=== PATIENT | female | born 1945 | race Caucasian/White ===

== ENCOUNTER 2019-01-07 08:37 | Outpatient (REF) | payer MEDICARE, SELFPAY ==
[2019-01-07 19:20] LABS: Anion Gap 9.8 mmol/L (3-11); BUN 26 mg/dL (7-18); CO2 25.2 mmol/L (21.0-32.0); CREATININE 0.68 mg/dL (0.55-1.02); Calcium 9.2 mg/dL (8.5-10.1); Calculated LDL 177 mg/dL; Chloride 103 mmol/L (98-107); Cholesterol 249 mg/dL (50-200); Glucose 99 mg/dL (70-100); HDL Cholesterol 52 mg/dL (40-60); Potassium 4.4 mmol/L (3.5-5.1); Sodium 138 mmol/L (136-145); Triglyceride 104 mg/dL (30-150)
== END 2019-01-07 08:57 ==
LOC: NCHCN 08:37
PROVIDERS: PCP Internal Medicine; Visit Provider Internal Medicine
DX: I10 Essential (primary) hypertension (principal)
CPT/HCPCS: 80048; 80061; 83721

== ENCOUNTER 2019-04-16 13:05 | Outpatient (REF) | payer MEDICARE, SELFPAY ==
[2019-04-16 19:38] LABS: Anion Gap 10.2 mmol/L (3-11); CO2 23.8 mmol/L (21.0-32.0); Chloride 104 mmol/L (98-107); Potassium 4.3 mmol/L (3.5-5.1); Sodium 138 mmol/L (136-145)
== END 2019-04-16 13:25 ==
LOC: LBN 13:05
PROVIDERS: PCP Internal Medicine; Visit Provider Family Medicine
DX: E87.1 Hypo-osmolality and hyponatremia (principal)
CPT/HCPCS: 80051

== ENCOUNTER 2019-05-31 17:51 | Outpatient (REF) | payer MEDICARE, SELFPAY ==
[2019-05-31 19:25] LABS: Anion Gap 8.2 mmol/L (3-11); BUN 25 mg/dL (7-18); CO2 29.8 mmol/L (21.0-32.0); CREATININE 0.85 mg/dL (0.55-1.02); Calcium 9.9 mg/dL (8.5-10.1); Chloride 102 mmol/L (98-107); Glucose 108 mg/dL (74-106); Potassium 3.7 mmol/L (3.5-5.1); Sodium 140 mmol/L (136-145)
== END 2019-05-31 18:11 ==
LOC: NCHCN 17:51
PROVIDERS: PCP Internal Medicine; Visit Provider Internal Medicine
DX: E87.1 Hypo-osmolality and hyponatremia (principal)
CPT/HCPCS: 80048

== ENCOUNTER 2019-10-31 11:51 | Outpatient (REF) | payer MEDICARE, SELFPAY ==
[2019-10-31 20:12] LABS: Anion Gap 8.6 mmol/L (3-11); BUN 23 mg/dL (7-18); CO2 26.4 mmol/L (21.0-32.0); CREATININE 0.99 mg/dL (0.55-1.02); Calcium 9.9 mg/dL (8.5-10.1); Chloride 102 mmol/L (98-107); Estimated GFR 55.14 (mL/min/1.73m2); Glucose 108 mg/dL (74-106); Potassium 4.2 mmol/L (3.5-5.1); Sodium 137 mmol/L (136-145)
== END 2019-10-31 12:11 ==
LOC: NCHCN 11:51
PROVIDERS: PCP Internal Medicine; Visit Provider Internal Medicine
DX: I10 Essential (primary) hypertension (principal); E87.1 Hypo-osmolality and hyponatremia; M17.9 Osteoarthritis of knee, unspecified; H81.10 Benign paroxysmal vertigo, unspecified ear
CPT/HCPCS: 80048

== ENCOUNTER 2020-10-29 20:32 | Outpatient (REF) | payer MEDICARE, SELFPAY ==
[2020-10-29 15:43] LABS: HCT 40.3 % (36.0-46.0); HGB 13.3 g/dL (11.2-15.7); MCH 32.6 pg (27.0-33.0); MCV 98.8 fL (80-95); MPV 10.2 fL (8.0-11.0); Platelet Count 300 10^3/uL (130-400); RBC 4.08 10^6/uL (3.93-5.22); RDW 13.2 % (11.7-14.6); RDW-SD 48.1 fL; WBC 6.73 10^3/uL (4.4-10.8)
[2020-10-29 15:50] LABS: Anion Gap 8.1 mmol/L (3-11); BUN 31 mg/dL (7-18); CO2 28.9 mmol/L (21.0-32.0); CREATININE 0.9 mg/dL (0.55-1.02); Calcium 9.8 mg/dL (8.5-10.1); Chloride 103 mmol/L (98-107); Glucose 95 mg/dL (74-106); Magnesium 2.3 mg/dL (1.8-2.4); Potassium 3.9 mmol/L (3.5-5.1); Sodium 140 mmol/L (136-145)
== END 2020-10-29 20:33 | disposition home or self-care (01) ==
LOC: NCHCN 20:32
PROVIDERS: PCP Internal Medicine; Visit Provider Internal Medicine
DX: I10 Essential (primary) hypertension (principal); M17.11 Unilateral primary osteoarthritis, right knee; L57.8 Other skin changes due to chronic exposure to nonionizing radiation
CPT/HCPCS: 80048; 85027; 83735

== ENCOUNTER 2022-09-12 10:56 | Outpatient (CLI) | payer MEDICARE, SELFPAY ==
--- NOTE | 2022-09-12 10:15 | DI.RAD_ITS ---
Exam(s) XR KNEE RT 2V AP,LAT EXAM: XR KNEE RT 2V AP,LAT CLINICAL HISTORY: RIGHT KNEE PAIN. TECHNIQUE: 2D digital imaging was performed. COMPARISON: No exams were available for comparison FINDINGS: Two views: No evidence of fracture. Small amount of increased joint fluid. Moderate degenerative changes in the medial compartment. Mil nan degenerative changes in lateral and patellofemoral compartments IMPRESSION: Degenerative changes as described above DATA REPOSITORY: RADIATION DOSE DELIVERED:
--- NOTE | 2022-09-12 10:15 | DI.RAD_ITS ---
Exam(s) XR STANDING ALIGNMENT EXAM: XR STANDING ALIGNMENT CLINICAL HISTORY: RIGHT KNEE PAIN. TECHNIQUE: 2D digital imaging was performed. COMPARISON: No exams were available for comparison FINDINGS: 3 views Hips appear unremarkable. There are moderate degenerative changes in the medial compartments of both knees. No prominent joint space narrowing but there are marginal osteophytes off the medial compart ment of both knees. Lateral compartments of both knees exhibit normal height. Ankles unremarkable. Talar domes unremarkable. No osseous lesions. Bone density is age-appropriate. IMPRESSION: Moderate degenerative changes in the medial compartments of both knees. DATA REPOSITORY: RADIATION DOSE DELIVERED:
== END 2022-09-12 10:57 | disposition home or self-care (01) ==
LOC: DIORS 10:57
PROVIDERS: PCP Internal Medicine; Referring Provider Internal Medicine; Visit Provider Student in an Organized Health Care Education/Training Program
DX: M17.11 Unilateral primary osteoarthritis, right knee (principal)
CPT/HCPCS: 99203; 73560; 77073

== ENCOUNTER 2022-10-13 14:00 | Outpatient (REF) | payer MEDICARE, SELFPAY ==
[2022-10-13 19:57] LABS: Anion Gap 7.8 mmol/L (3-11); BUN 21 mg/dL (7-18); CO2 28.2 mmol/L (21.0-32.0); CREATININE 0.9 mg/dL (0.55-1.02); Calcium 9.7 mg/dL (8.5-10.1); Calculated LDL 154 mg/dL (<100); Chloride 103 mmol/L (98-107); Cholesterol 237 mg/dL (<200); Estimated GFR 66.67 (mL/min/1.73m2); Glucose 128 mg/dL (74-106); HDL Cholesterol 66 mg/dL (40-60); Potassium 3.9 mmol/L (3.5-5.1); Sodium 139 mmol/L (136-145); Triglyceride 88 mg/dL (<150)
== END 2022-10-13 14:01 | disposition home or self-care (01) ==
LOC: NCHCN 14:00
PROVIDERS: PCP Internal Medicine; Visit Provider Internal Medicine
DX: I10 Essential (primary) hypertension (principal); D15.1 Benign neoplasm of heart
CPT/HCPCS: 80048; 80061

== ENCOUNTER 2022-10-20 02:45 | Outpatient (CLI) | payer MEDICARE, SELFPAY ==
[2022-10-20 15:39] LABS: HCT 36.6 % (36.0-46.0); HGB 12.2 g/dL (11.2-15.7); MCH 32.8 pg (27.0-33.0); MCHC 33.3 % (32.0-36.0); MCV 98 fL (80-95); MPV 9.2 fL (8.0-11.0); Platelet Count 287 10^3/uL (130-400); RBC 3.72 10^6/uL (3.93-5.22); RDW 12.8 % (11.7-14.6); RDW-SD 46.2 fL; WBC 5.48 10^3/uL (4.4-10.8)
[2022-10-20 16:29] LABS: Anion Gap 9.5 mmol/L (3-11); BUN 22 mg/dL (7-18); CO2 27.5 mmol/L (21.0-32.0); CREATININE 0.8 mg/dL (0.55-1.02); Calcium 9.8 mg/dL (8.5-10.1); Chloride 103 mmol/L (98-107); Estimated GFR 76.79 (mL/min/1.73m2); Glucose 108 mg/dL (74-106); Potassium 3.9 mmol/L (3.5-5.1); Sodium 140 mmol/L (136-145)
== END 2022-10-20 02:46 | disposition home or self-care (01) ==
LOC: LBO 02:45
PROVIDERS: PCP Internal Medicine; Visit Provider Student in an Organized Health Care Education/Training Program
DX: M17.11 Unilateral primary osteoarthritis, right knee; Z01.818 Encounter for other preprocedural examination; Z01.812 Encounter for preprocedural laboratory examination
CPT/HCPCS: 36415; 80048; 85027

== ENCOUNTER 2022-10-26 08:47 | Day surgery (SDC) | payer MEDICARE, SELFPAY ==
[2022-10-26] VITALS (11 sets, daily range): BP systolic 127–188; BP diastolic 62–103; PULSE 63–79; RESP 14–18; TEMP 36.4–37.1; O2SAT 97–100; BMI 21.0
--- NOTE | 2022-10-26 09:10 | ANES.PREOP_ITS ---
General Info Date of Service Date Performed: 10/26/22 Height: 5 ft 2 in Weight: 52.163 kg Body Mass Index (BMI): 21.0 Surgical Procedure: Operation Date: 10/26/22 11:40 Proposed Procedure Side Surgeon p Knee Total Arthroplasty w/OrthAlign, Cementless CR Right Jostin Sahni MD Meds Allergies and Home Medications Allergies Allergy/AdvReac Type Severity Reaction Status Date / Time ciprofloxacin Allergy Intermediate Hives Verified 10/26/22 08:54 amoxicillin Allergy Verified 10/26/22 08:54 piperacillin [From Zosyn] Allergy Verified 10/26/22 08:54 sulfamethoxazole Allergy Verified 10/26/22 08:54 [From Bactrim] tazobactam [From Zosyn] Allergy Verified 10/26/22 08:54 trimethoprim [From Bactrim] Allergy Verified 10/26/22 08:54 vancomycin Allergy Verified 10/26/22 08:54 Home Medication Medication Instructions Recorded albuterol sulfate 2.5 mg/3 mL 2.5 mg inhalation Q6H 09/12/22 (0.083 %) solution for nebulization albuterol sulfate 90 mcg/actuation 2 puff inhalation Q6H PRN 09/12/22 aerosol inhaler (Ventolin HFA) lisinopril 40 mg tablet 40 mg PO DAILY 09/12/22 multivitamin with minerals 1 tab PO DAILY 09/12/22 torsemide 10 mg tablet 10 mg PO DAILY 09/12/22 flaxseed 1,000 mg capsule 1,200 mg PO DAILY 10/25/22 acetaminophen 500 mg tablet 1,000 mg PO TID #90 tabs 10/26/22 aspirin 81 mg tablet,delayed 81 mg PO BID #60 tabs 10/26/22 release celecoxib 200 mg capsule 200 mg PO BID #60 caps 10/26/22 dexamethasone 4 mg tablet 4 mg PO DAILY #2 tabs 10/26/22 gabapentin 300 mg capsule 300 mg PO QHS #14 caps 10/26/22 oxycodone 5 mg tablet 5 mg PO Q4H PRN pain #20 tabs 10/26/22 pantoprazole 40 mg tablet,delayed 40 mg PO DAILY #30 tabs 10/26/22 release Current Visit Medications: Current Medications Generic Name Dose Route Start Last Admin Trade Name Freq PRN Reason Stop Dose Admin Acetaminophen 1,000 mg 10/26/22 06:00 Acetaminophen 500 Mg Tab PO 10/26/22 16:00 PREOP RUSTY Acetaminophen 1,000 mg 10/26/22 07:42 Acetaminophen 500 Mg Tab PO 11/25/22 07:41 TID PRN PRN Analgesia Celecoxib 400 mg 10/26/22 06:00 Celecoxib 200 Mg Cap PO 10/26/22 16:00 PREOP RUSTY Docusate Sodium 100 mg 10/26/22 07:42 Docusate Sodium 100 Mg Cap PO 11/25/22 07:41 BID PRN PRN Constipation Gabapentin 300 mg 10/26/22 06:00 Gabapentin 300 Mg Cap PO 10/26/22 16:00 PREOP RUSTY Tranexamic Acid 1,000 mg/ 60 mls @ 360 mls/hr 10/26/22 06:00 Sodium Chloride IVPB 10/26/22 16:00 PREOP RUSTY Ondansetron HCl 4 mg 10/26/22 07:42 Ondansetron 4 Mg/2 Ml Vial IVP 11/25/22 07:41 Q6H PRN PRN Nausea Oxycodone HCl 0 mg 10/26/22 07:42 Oxycodone 5 Mg Tab PO 11/25/22 07:41 Q3H PRN PRN Pain Polyethylene Glycol 17 gm 10/26/22 07:42 Polyethylene Glycol 3350 17 Gm Packet PO 11/25/22 07:41 BID PRN PRN Constipation PFSH Active Problems Active Problems: Problem Status Onset Code Degenerative joint disease of right knee M17.11 Medical History Medical History Essential hypertension PCO (posterior capsular opacification), left Surgical History Surgical History Hx of foot surgery Mid-tarsal [id number] plates and screws, and wire Hx of knee surgery Per pt. states she had a lateral resection Status post arthroscopy of right knee Tobacco Smoking/Tobacco Use Status: Former Tobacco Use Alcohol Alcohol Intake: current Alcohol intake frequency: a few times a month Alcohol type: hard liquor Vital Signs and Lab Results Vital Signs Most Recent Vital Signs in EMR: Temp Pulse Resp BP Pulse Ox 36.5 C 63 16 171/81 H 98 10/26/22 08:56 10/26/22 08:56 10/26/22 08:56 10/26/22 08:56 10/26/22 08:56 Lab Results Blood Type / Crossmatch: No Data to Display Complete Blood Count: White Blood Count 5.48 10^3/uL (4.4-10.8) 10/20/22 15:30 Red Blood Count 3.72 10^6/uL (3.93-5.22) L 10/20/22 15:30 Hemoglobin 12.2 g/dL (11.2-15.7) 10/20/22 15:30 Hematocrit 36.6 % (36.0-46.0) 10/20/22 15:30 Platelet Count 287 10^3/uL (130-400) 10/20/22 15:30 Complete Metabolic Panel: Sodium 140 mmol/L (136-145) 10/20/22 15:30 Potassium 3.9 mmol/L (3.5-5.1) 10/20/22 15:30 Chloride 103 mmol/L (98-107) 10/20/22 15:30 Carbon Dioxide 27.5 mmol/L (21.0-32.0) 10/20/22 15:30 BUN 22 mg/dL (7-18) H 10/20/22 15:30 Creatinine 0.8 mg/dL (0.55-1.02) 10/20/22 15:30 Est GFR (CKD-EPI 2020) 76.79 (mL/min/1.73m2) 10/20/22 15:30 Calcium 9.8 mg/dL (8.5-10.1) 10/20/22 15:30 Glucose 108 mg/dL (74-106) H 10/20/22 15:30 Liver Function Panel: No Data to Display Coagulation Panel: No Data to Display Cardiac Panel: No Data to Display Arterial Blood Gas: No Data to Display Venous Blood Gas: No Data to Display Pancreas Panel: No Data to Display Thyroid Panel: No Data to Display Infectious Disease: No Data to Display Blood Cultures: No Data to Display Toxicology Panel: No Data to Display Anesthesia Assessment and Plan Anesthesia History Personal History: No History of Anesthesia Complications Family History: No Family History of Anesthesia Complications Exercise Tolerance Exercise Tolerance: Metabolic Equivalents>4 Cardiac & Pulmonary Exam Cardiac Exam: Normal S1/S2 Heart Sounds Pulmonary Exam: Clear Bilateral Breath Sounds Implantable Cardiac Device Does patient have a Pacemaker or an ICD?: No Airway Exam Known Difficult Airway: No Mallampati Class: 2 Mouth Opening: Normal (> 3cm) Thyromental Distance: Greater than 3 cm Neck Range of Motion: Full ROM Neck Circumference: Normal Teeth Condition: Normal Dentition, Removable Dentures/Plates Upper and Removable Dentures/Plates Lower ASA Classification ASA Score: ASA 2 Emergency Case?: No NPO Status NPO Status: NPO Clears >2 hours, Solids >8 hours Anesthesia Plan Resuscitation Status: Full Code Anesthesia Technique: Spinal Anesthesia Airway Planned: Natural Airway Pain Management: Surgeon and patient request nerve block Monitors Used: Standard Monitors Preoperative Comments:: 77 yo female for TKA. Sig PMHx: HTN (lisinopril, torsemide), asthma ( with coughs and colds, albuterol), former smoker, occ EtOH. Cardiac MRI 11/01, due to ECHO at [facility] which showed atrial mass: LVEF 71%, normal fxn. mild TR, mild MR, no atrial mass. Previous Anes: - [facility], easy mask, AirQ 3.5 - woke up confused and very sore throat.
[2022-10-26] MEDS: Acetaminophen 500 MG TAB 1000 MG PO (09:41)
[2022-10-26] MEDS: Gabapentin 300 MG CAP PO (09:41)
[2022-10-26] MEDS: Celecoxib 200 MG CAP 400 MG PO (09:41)
[2022-10-26] MEDS: Lactated Ringers 1,000 ML 80 ML IV (09:42)
--- NOTE | 2022-10-26 11:37 | W.ANESNERVE ---
Nerve Block Single Injection Procedure Date and Time Date Performed: 10/26/22 Procedure Start: 11:30 Location Where Procedure Performed Procedure Location: Day Surgery Unit Reason Performed: Postoperative Analgesia Requesting Provider: Jostin Sahni Timeout Performed Timeout Performed: Yes Monitoring Used ECG, Blood Pressure and SpO2 Sterility Sterility: Hand Hygiene, Surgical Cap, Surgical Mask, Sterile Gloves and Chlorhexidine Sedation Given During Procedure Sedation Given (Indicate Dose Given): No Sedation given Patient Mental Status Patient Mental Status: Awake Nerve Block 1st Nerve Block: Laterality: Right Block Type: Adductor Canal Ultrasound Image Saved?: Yes Needle / Catheter Used: 120mm SonoPlex II Local Anesthetic Bolus (Indicate Dose Given): Lidocaine used for local infiltration of skin and Bupivacaine 0.25% Dose:: 12 mL Additives (Indicate Dose Given): None Ultrasound: Sterile probe cover and gel used Nerve Stimulator: Primary Nerve Stimulator Technique and No twitch or parasthesia noted < 0.5 mA Paresthesia: None Procedure Tolerated: No Complications Procedure Outcome: Successful Performed By: Nain Sterling
[2022-10-26] MEDS: ceFAZolin 2 GM/50 ML BAG IVPB (11:48)
--- NOTE | 2022-10-26 14:29 | W.ANESPOSTOP ---
Postoperative Evaluation Date, Time and Location Date Performed: 10/26/22 Time Performed: 14:29 Patient Location: PACU Vital Signs Most Recent Imported Vital Signs: Most Recent Vital Signs Temp Pulse Resp BP Pulse Ox 37.1 C 74 15 149/76 H 100 10/26/22 13:55 10/26/22 14:25 10/26/22 14:25 10/26/22 14:25 10/26/22 14:25 Pain Score Most Recent Pain Score: Most Recent Pain Score Pain Level 0 10/26/22 14:25 Assessment Mental Status: Awake (Alert & Oriented to Patient Baseline) Airway and Respiratory Function: Patent airway with normal (patient baseline) respiratory exam Cardiovascular Function: Hemodynamically Stable Hydration Status: Adequately Hydrated Nausea & Vomiting: No Nausea or Vomiting Pain: Pain is tolerable per patient Peripheral Nerve Block: Patient did not receive a nerve block
--- NOTE | 2022-10-26 15:29 | W.PM.DSUDISC ---
Date of service: 10/26/22 Time of Service: 15:29 Discharge Plan Disposition Patient Disposition: Home Condition: Good Discharge Details Reason For Visit: R TKR Attending Provider: Jostin Sahni Primary Care Provider: Francisco Andrew Home Meds and New Rx's Prescriptions: New celecoxib 200 mg capsule 200 mg PO BID Qty: 60 0RF aspirin 81 mg tablet,delayed release (DR/EC) 81 mg PO BID Qty: 60 0RF acetaminophen 500 mg tablet 1,000 mg PO TID Qty: 90 3RF pantoprazole 40 mg tablet,delayed release (DR/EC) 40 mg PO DAILY Qty: 30 0RF dexamethasone 4 mg tablet 4 mg PO DAILY Qty: 2 0RF gabapentin 300 mg capsule 300 mg PO QHS Qty: 14 0RF oxycodone 5 mg tablet 5 mg PO Q4H MDD 6 tabs PRN (Reason: pain) Qty: 20 0RF Continued torsemide 10 mg tablet 10 mg PO DAILY lisinopril 40 mg tablet 40 mg PO DAILY albuterol sulfate 2.5 mg /3 mL (0.083 %) solution for nebulization 2.5 mg inhalation Q6H albuterol sulfate [Ventolin HFA] 90 mcg/actuation HFA aerosol inhaler 2 puff inhalation Q6H PRN multivitamin with minerals Tablet 1 tab PO DAILY flaxseed 1,000 mg Capsule 1,200 mg PO DAILY Discontinued ibuprofen 200 mg capsule 200 mg PO Q6H PRN acetaminophen 325 mg capsule 325 mg PO ONCE PRN Discharge Instructions Additional Instructions: Total Knee Discharge Instructions Activity: The most important activity is to walk and to work on gentle motion (both flexion and extension). You should try to take short walks a few times a day. It is important that when resting you work on keeping the knee straight. Avoid putting a pillow behind the knee as this will encourage flexion. Work on range of motion exercises as provided by Physical Therapy. - Start outpatient physical therapy within 2 weeks. November 09, 2022 @ 11:00 am - You should wear the JOANN hose on both legs for 2 weeks. You may remove these at night. You may also use any compression sock in place of the JOANN hose. - Utilize [employer] to review exercises, see videos on exercises and obtain basic information pertaining to your surgery and your recovery. Dressing: Remove the Panchito wrap by 2 days after your surgery and put on the JOANN stocking given to you from the hospital. Keep the surgical dressing (underneath the PANCHITO wrap) in place for at least one week. After the first week it may be removed and replaced with light gauze and tape or nothing. The wound and dressing may get wet after 3 days but avoid soaking the dressing or otherwise it will need to be changed. Many people prefer covering the dressing with cling wrap (saran wrap) to minimize it from getting soaked. If it gets wet, just pat dry. If it starts to peel off then it will need to be changed. Medications: - You should take Tylenol and anti-inflammatory Celebrex as your primary pain control medications. If the Celebrex is too expensive or not covered, please call the office for another alternative (Advil/Ibuprofen or Naproxen/Aleve) - You have been prescribed a stronger pain medication Oxycodone for breakthrough pain, take as needed as prescribed. - You have also been prescribed a stomach acid reduction agent Pantoprozole to help reduce stomach acid and reflux. - You have been prescribed Gabapentin to take at night for restlessness and nerve pain. - You will be taking Aspirin 81mg twice a day for DVT prevention unless instructed otherwise. - You have also been prescribed Decadron to take to control post-operative nausea and pain. You will start this tomorrow. - If you have constipation you should take Colace or Miralax (both [id number]). It takes most people 3-4 days to have a bowel movement. Follow-up: 2 weeks November 10, 2022 @ 11:15 am If you have any acute concerns or questions, please do not hesitate to contact the office at [phone]. You may contact Dr. Sahni with any questions after hours through the hospital at [phone] or on his cell phone at [phone]. Stand Alone Forms: Anesthesia Discharge Inst., Nerve Block Instructions, Waleska Farooq (DSU) Equipment/Supplies: Walker Activity:: Activity as Tolerated Shower/Bathe:: 72 hours Diet:: As Tolerated Discharge Orders Discharge Orders: Discharge Order (Routine); Ordered 10/26/22 Ordered By: Jostin Sahni DS: Diagnosis Discharge Diagnosis (1) Degenerative joint disease of right knee: Status: Acute
--- NOTE | 2022-10-26 16:03 | PT.INIE ---
PT Notes Visit Reasons: R TKR Physical Therapy Day Surgery Initial Evaluation Date: 10/26/2022 Referring Doctor: ANTOINE Choi PT Orders: PT CONSULT: S/P Ortho Surgery Precautions: WBAT on right LE with AD. Patient Profile/Admitting Diagnosis: Julieta is a 77-year-old female with degenerative degenerative joint disease of the right knee and is status post right total knee arthroplasty on postoperative day 0. PMHX: Surgical History?(Updated 09/12/22 @ 17:50 by Janeth Wilkerson) Status post arthroscopy of right knee Social History/Home Situation: Lives in a private home with 3 steps to enter with rails on B sides. Independent with all ADLs prior to surgery but had been having increasing difficulty managing mobility ADLs due to pain and pre-existing balance issue. Equipment Owned/DME: [facility] Subjective: Reports a mild ache in the back of R knee that did not limit abilty to move. Objective: General Observation: Supine in bed. CARMEN wraps to right LE. Cryocuff to right knee. TEDS to left leg. Mental Status: Alert and oriented x4 Pain: 2-3/10 in the right upper vaginal area ROM: Right Lower Extremity: Hip flexion WFL. Hip abduction WFL. Knee flexion 0 to 100 degrees. Knee extension 100 degrees to 0. Ankle dorsiflexion WFL. Ankle plantarflexion WFL. Left Lower Extremity: Hip flexion WFL. Hip abduction WFL. Knee flexion WFL. Ankle dorsiflexion WFL. Ankle plantarflexion WFL. Strength: Right Lower Extremity: Hip flexors 5/5. Hip abductors 5/5. Knee flexors 5/5. Knee extensors 5/5. Ankle dorsiflexors 5/5. Ankle plantarflexors 5/5. Left Lower Extremity:Hip flexors 4/5. Hip abductors 4/5. Knee flexors 3-/5. Knee extensors 4-/5. Ankle dorsiflexors 5/5. Ankle plantarflexors 5/5. Sensation: Intact as to pain and light pressure in bilateral lower extremities Bed Mobility/Transfers: Supine to sit standby assist Sit to stand standby assist Stand to sit standby assist Bed to chair standby assist Gait: Tolerated level surface ambulation of 150 feet using step-through gait pattern with standby assist. Denies headache, chest pain, and lightheadedness throughout session. Stairs: Ascended and descended 6 x 4-inch steps and 4 x 6-inch steps while holding onto bilateral rails with step to gait pattern. Stand by assist provided. Balance: Static Sitting: Normal Dynamic Sitting: Normal Static Standing: Fair Dynamic Standing: Fair Special Tests: Mobility Limitations Standardized Measure [facility] AM-PAC 6 clicks Basic Mobility Inpatient Short Form: Raw Score: 24 CMS Score: 0% deficit Informed Consent/Education: Patient instructed in purpose of PT consult. Packet containing TKA exercise protocol has been given to patient. Education and training on initial set of exercises that can be done at home have been completed with patient. THERA EX: Good patient with safe and correct performance of HEP to maintain joint flexibility and optimize functional mobility outcomes: Access Code: [email or web address] URL: [email or web address] Date: 10/26/2022 Prepared by: Brenda Marks Exercises - Supine Quad Set - 1 x daily - 7 x weekly - 1 sets - 10 reps - 5 hold - Supine Heel Slides - 1 x daily - 7 x weekly - 1 sets - 10 reps - 5 hold - Supine Ankle Pumps - 1 x daily - 7 x weekly - 1 sets - 10 reps - 5 hold - Small Range Straight Leg Raise - 1 x daily - 7 x weekly - 1 sets - 10 reps - 5 hold - Seated March - 1 x daily - 7 x weekly - 1 sets - 10 reps - 5 hold Assessment: Mai requires the use of a front wheel walker to maximize independence and reduce fall risk. Patient presents with clinical signs and symptoms consistent with current/admitting diagnoses that have resulted to mobility limitations, gait instability, generalized weakness, and impairment of motor control as demonstrated by the following impairment level findings: 1. Decreased strength to R knee major muscle groups 2. Impaired standing balance 3. Limitation of joint range of motion in R knee Impairments are contributing to the following functional limitations: 1. Inability to safely ambulate without assistive device 2. Increase completion time for mobility ADL performance 3. Increased fall risk Patient is assessed as a [id number] moderate complexity based on the following: History: 77-year-old female with impairment level findings, functional limitations, and past medical history as indicated above Examination: Demonstrable impairment in strength, balance, and mobility level with underlying impairments and functional limitations as documented above Presentation: Evolving Decision Makin moderate complexity Goals: N/A. PT evaluation and 1-2 treatment sessions only for functional mobility training using recommended AD and for HEP instruction. Plan of Care/Treatment Plan: N/A. PT evaluation and 1-2 treatment session only for functional mobility training using recommended AD and for HEP instruction. DISCHARGE RECOMMENDATIONS: Home when medically cleared by orthopedic surgeon. Recommend outpatient PT services maximize functional mobility outcomes and facilitate return to independent community ambulation without an assistive device. TREATMENT CODE/TIME: 31427 x 20 minutes, [id number] x 16 minutes beginning at 16:06 PM. Thank you for the opportunity to participate in the care of this patient. Brenda Marks PT, DPT, CLT [facility] [place], [place]
--- NOTE | 2022-10-26 16:46 | W.PM.OP ---
Date of service: 10/26/22 Time of Service: 13:30 Operative Note Operative Note DATE OF PROCEDURE: 10/26/22 PRE-OP DIAGNOSIS: Right Knee Osteoarthritis POST-OP DIAGNOSIS: same PROCEDURE: Right Total Knee Replacement with Intraoperative Navigation SURGEON: Jostin Sahni LABELING MACHINE OPERATOR: August Estrella ANESTHESIA TYPE: Spinal Refer to Anesthesia Record PATHOLOGY: none sent TOURNIQUET TIME: 0 COMPLICATIONS: None Patient was transported to: PACU Patient's condition: stable Implants: 1. Depuy Attune Cementless Cruciate Retaining Femoral Component, Size 6 2. Depuy Attune Cementless Rotating Platform Tibial Component, Size 5 3. Depuy Attune 6x6 CR/RP Poly 4. Depuy Attune Patellar Component, Size 35 Indications: I have seen Julieta in clinic for symptoms of RIGHT knee arthritis, confirmed with radiographic findings. Julieta has exhausted nonoperative methods and was having significant limitations in daily function and desired better function and less pain. I discussed the technical details of a knee replacement. I explained the risks of the procedure to include, but not limited to, bleeding, infection, pain, stiffness, fracture, damage to nerves and vessels, damage to muscles and tendons, loosening, need for repeat procedure, blood clot and cardiopulmonary demise. Despite these risks, she elected to proceed. Findings: There was significant signs of arthritis throughout the knee with deformity of the posterolateral tibia. Procedure Description: Julieta was greeted in the preoperative holding area where the correct side was identified and marked. The consent was reviewed with the patient and signed. The history and physical was updated. All questions were answered. Preoperative mediacations were administered: Acetaminophen 1000mg, Celebrex 400mg, and Gabapentin 300mg. An adductor canal block was then administered by the anesthesia team in the PACU. She was taken back to the operating room. A spinal anesthestic was then administered. The patient was placed into the supine position on the operating room table. A nonsterile tourniquet was placed high onto the leg. Posts were placed for positioning during the procedure. All bony prominences were well padded. Prophylactic antibiotics in the form of Cefazolin were administered. 1g of Tranxemic Acid was given intravenously within 30 minutes of incision. The right leg was then prepped with Chloraprep and draped in a standard fashion with impervious stockinette. A second prep with Chloraprep was performed prior to application of Iodine impregnated skin protection. A timeout to confirm correct identity, side and site, procedure, allergies, anesthesia, and medical concerns was performed. With the knee in some flexion, a midline incision was made overlying the knee. Full thickness skin flaps were raised once the extensor mechanism was encountered. These were raised medially and laterally. Any bleeding was controlled with electrocautery. Once the extensor mechanism was fully exposed, a medial parapatellar arthrotomy was performed in a flexed position. All bleeding from the arthrotomy and the geniculate arteries was coagulated. A medial subperiosteal peel was performed with electrocautery to the midcoronal plane. The fat pad was removed while keeping the patellar tendon protected. The anterior distal femur synovium was removed for later visualization. The ACL and PCL were resected and the anterior horn of the lateral meniscus was transected. The knee was then flexed with the patella everted. Large osteophytes from the tibia were removed. Large osteophytes from the femur were removed. A single starting pin was then placed 1cm anterior to the PCL insertion and the notch in the direction of the femoral head. The OrthoAlign device was applied over the pin. It was oriented to be in line with the epicondylar axis and the trochlear groove. It was then pinned into place. The navigation computer was then turned on and calibrated. The distal femur cut was set at 0 degrees varus/valgus and 3 degrees flexion. The distal femur cutting guide then was positioned for a 9mm cut. The distal femur was cut with an oscillating saw while protecting the soft tissues. The tibia was then addressed. The OrthoAlign device was placed over the tibial tubercle and medial tibia and secured into position. Once again, OrthoAlign was calibrated and then set for a 0 degree cut and 6 degrees of posterior slope. With this locked into position, the cut thickness stylus was used to assess cut thickness. The posterolateral side, most involved side, was set for a 2mm cut. This was then held in position and pinned into place with 2 additional pins and a cross pin for stability. The medial and lateral collateral ligaments were protected and the cut was performed. With this completed, it was assessed and noted to be of appropriate dimensions. The guide and OrthoAlign was removed. A spacer block was inserted and the knee was brought into extension to ensure enough space was present. The femur was then sized as a size 6. The Orthoalign gap balancing device was then placed in extension. This was used to ensure that the ligaments were properly balanced. The extension gap was measured as 18mm. The knee was then brought into 90 degrees of flexion and the ligament senior site manager was once again placed. Under the same amount of force the flexion gap was measured. The Attune specific jig was placed and the flexion gap was made to match the extension gap. The 4-in-1 cutting guide was the placed. An betsy wing was used to confirm appropriate position of the anterior cut to avoid notching. This cutting guide was ensured to be flush on the cut surface and then pinned into place with headed pins. While protecting the soft tissues, quad tendon, and collateral ligaments, the anterior and posterior cuts were performed with a saw. The central two pins were removed and the posterior and anterior chamfers were cut next. The notch-cutting guide was placed. This was pinned to lateralize the femoral component as much as possible while keeping it flush on the cut surface. This was then pinned into position. A saw was used to make the notch cut. A rasp smoothed the cut surfaces. The medial and lateral menisci were removed. A trial femoral component was then inserted, impacted down to the cut surfaces, and the lug holes were drilled. A provisional trial tibial component was placed and the knee was brought through range of motion. There was noted to be excellent extension and flexion. There was no significant instability. The patella was tracking without thumbs. A size 6mm polyethylene component provided the best range of motion and stability with less than 2mm gapping with medial and lateral stress and full extension without significant hyperextension. The tibial cut surface was fully exposed. The tibia was then sized as a 5. The tibia had been previously marked during trialing to correspond to the center of the tibial component to help with rotation. The trial was aligned to this august, approximately rotated to the medial 1/3rd of the tibial tubercle. The trial was pinned into place. The tibia was prepared with a reamer and a keel punch and lug holes. The knee was then brought into extension and the patella was measured as 23mm. Using the patellar clamp and cut guide, this was resected to a flat surface with at least 13mm of thickness remaining. The size 35 patella fit the best. This was oriented and then clamped into position. The lugs were drilled. The trial components were removed. The final components were opened on the back table. The periosteal and capsular tissues, especially posteriorly, around the knee were then systematically injected with a periarticular cocktail consisting of 246mg of Ropivacaine, 0.5mg of Epinephrine, 0.08mg of Clonidine, and 30mg of Ketorolac, diluted to 100cc. On the back table, with the implants opened, the cement was mixed. One batch of high viscosity cement was prepared with vacuum assistance. After the cement was ready a small amount was placed on the cut surface of the patella and the patellar button was clamped into position and held. While the cement was hardening, the cementless knee components were placed. Starting with the tibial component, the tibia was subluxed anteriorly and the lug holes of the component were lined up. The tibia was then impacted with an impactor and mallet until the tibial component was in contact with the tibia. The final polyethylene component was inserted. Then, the femoral component was inserted. The lug holes were aligned and the component was impacted into position. The knee was irrigated with Surgiphor Betadine solution. This was allowed to sit in the knee for 3 minutes and then it was thoroughly irrigated out with saline. After the cement had finally cured, approximately 15min, the clamp was removed from the patella and the knee was taken through range of motion. The patella was tracking with a no-thumbs technique. The capsule was then reapproximated with a No. 1 Vicryl at multiple locations. The capsule was finally closed with a No. 2 Stratafix, barbed suture. Deep tissues were then reapproximated with 0 Vicryl and 2-0 Vicryl. The skin was closed with a running 3-0 Monocryl in a subcuticular fashion. This was reinforced with skin glue. A Mepilex silver dressing was applied along with a [id number] CARMEN wrap. A CryoCuff was applied. Julieta was transferred to the hospital bed without difficulty an suffering no apparent complication. She has a good prognosis. Physical therapy will start today and without restrictions, weight-bearing as tolerated. Aspirin 81mg BID will be used for DVT prophylaxis.
== END 2022-10-26 17:15 | disposition home or self-care (01) ==
PROVIDERS: PCP Internal Medicine; Visit Provider Student in an Organized Health Care Education/Training Program
PROC: (CPT 27447; principal; 2022-10-26 11:30)
DX: M17.11 Unilateral primary osteoarthritis, right knee (principal); I10 Essential (primary) hypertension
CPT/HCPCS: 20985; 27447; C1776; 76942; 97162; 97530; J0690; J1100; J2370; J2405

== ENCOUNTER 2022-11-10 11:12 | Outpatient (CLI) | payer MEDICARE, SELFPAY ==
--- NOTE | 2022-11-10 11:00 | DI.RAD_ITS ---
Exam(s) XR STANDING ALIGNMENT EXAM: XR STANDING ALIGNMENT CLINICAL HISTORY: 1ST POST OP R TKA. TECHNIQUE: 2D digital imaging was performed. COMPARISON: Prior x-rays 09/12/2022 FINDINGS: 3 views There has been interval placement of a right knee prosthesis. Appears satisfactory. Mild narrowing of the medial compartment of the opposite-left knee again noted. Lateral compartment normal height. Hips appear unremarkable. Ankles unremarkable. IMPRESSION: As above. DATA REPOSITORY: RADIATION DOSE DELIVERED:
--- NOTE | 2022-11-10 11:00 | DI.RAD_ITS ---
Exam(s) XR KNEE RT 1V EXAM: XR KNEE RT 1V CLINICAL HISTORY: 1st post op R TKA. TECHNIQUE: 2D digital imaging was performed. COMPARISON: CR XR KNEE RT 2V AP,LAT from 09/12/2022 FINDINGS: Single lateral view Satisfactory position alignment of the components of the recently placed prosthesis. No fracture or loosening evident. IMPRESSION: Satisfactory appearance on this lateral view. DATA REPOSITORY: RADIATION DOSE DELIVERED:
== END 2022-11-10 11:13 | disposition home or self-care (01) ==
LOC: DIORS 11:12
PROVIDERS: PCP Internal Medicine; Referring Provider Internal Medicine; Visit Provider Student in an Organized Health Care Education/Training Program
DX: Z96.651 Presence of right artificial knee joint (principal); Z47.1 Aftercare following joint replacement surgery
CPT/HCPCS: 73560; 77073

== ENCOUNTER → 2022-12-09 10:55 | Outpatient (BNVA) | payer MEDICARE, SELFPAY | PROVIDERS: PCP Internal Medicine; Visit Provider Student in an Organized Health Care Education/Training Program | DX: Z47.1 Aftercare following joint replacement surgery (principal); Z96.651 Presence of right artificial knee joint ==

== ENCOUNTER 2023-01-16 16:03 | Outpatient (CLI) | payer MEDICARE, SELFPAY ==
--- NOTE | 2023-01-16 15:36 | DI.RAD_ITS ---
Exam(s) XR FOOT RT COMPLETE EXAM: XR FOOT RT COMPLETE CLINICAL HISTORY: R foot pain. TECHNIQUE: 2D digital imaging was performed. Three views. COMPARISON: No exams were available for comparison FINDINGS: BONES: There is hardware across the 1st through 3rd tarsal metatarsal joints for fusion. No acute fr acture is present. No bony destructive lesion is seen. Tiny plantar calcaneal spur. JOINTS: No dislocation present. Minimal degenerative changes. SOFT TISSUE: Normal. IMPRESSION: Post surgical changes at the 1st through 3rd tarsal metatarsal joints. DATA REPOSITORY: RADIATION DOSE DELIVERED:
== END 2023-01-16 16:04 | disposition home or self-care (01) ==
LOC: DIORS 16:03
PROVIDERS: PCP Internal Medicine; Referring Provider Internal Medicine; Visit Provider Student in an Organized Health Care Education/Training Program
DX: M79.671 Pain in right foot (principal); Z47.1 Aftercare following joint replacement surgery; T84.84XD Pain due to internal orthopedic prosthetic devices, implants and grafts, subsequent encounter; Z96.651 Presence of right artificial knee joint
CPT/HCPCS: 73630

== ENCOUNTER 2023-04-04 11:04 | Day surgery (SDC) | payer MEDICARE, SELFPAY ==
[2023-04-04] MEDS: Celecoxib 200 MG CAP 400 MG PO (11:19)
[2023-04-04] MEDS: Acetaminophen 500 MG TAB 1000 MG PO (11:19)
[2023-04-04 11:22] VITALS: BP 168/84; PULSE 66; RESP 16; TEMP 36.3; O2SAT 97
--- NOTE | 2023-04-04 11:34 | W.PREOPHP ---
Documented by User: Janeth Wilkerson 04/04/23 12:57 Assessment and Plan Assessment and plan (1) Painful orthopaedic hardware: Status: Acute Assessment and plan: Plan: Educated patient on surgery covering surgical technique, recovery process, benefits and risks including but not limited to risk of infection, blood clot, damage to soft tissue/blood vessels/nerves in detail. After discussion patient gives verbal understanding of risks and elects to proceed with scheduling surgery. Patient had opportunity to have questions answered to their satisfaction. They will contact office if issues arise. Patient will continue to be scheduled for removal of painful orthopedic hardware from her right foot with Dr. Sahni History of Present Illness Narrative: Ms. Estes is a 77-year-old female who presents to hospital for right foot surgery to remove painful hardware. For more details regarding history please refer to her last orthopedic visit note from 01/16/23. Denies any changes in her symptoms since her last visit. Review of Systems Cardiovascular Cardiovascular: Denies chest pain and Denies dyspnea Respiratory Respiratory: Denies dyspnea PFSH All Active Problems Painful orthopaedic hardware (Acute) RIGHT FOOT Medical History PCO (posterior capsular opacification), left Essential hypertension Surgical History History of total right knee replacement (10/26/22) Hx of foot surgery (~12/2020) Mid-tarsal [id number] plates and screws, and wire Hx of knee surgery Per pt. states she had a lateral resection Status post arthroscopy of right knee Social History Smoking/Tobacco Use Status: Former Tobacco Use Quit Date: 06/12/77 Smoking risk assessment performed?: Yes Alcohol Intake: current Alcohol Intake frequency: a few times a month Alcohol type: hard liquor Drug use: Never Substance use type: does not use Housing: house Do you feel safe at home: Yes Do you feel safe in your relationship?: Yes Meds Allergies and Home Medications Allergies Allergy/AdvReac Type Severity Reaction Status Date / Time ciprofloxacin Allergy Intermediate Hives Verified 04/03/23 10:06 amoxicillin Allergy Verified 04/03/23 10:06 piperacillin [From Zosyn] Allergy Verified 04/03/23 10:06 sulfamethoxazole Allergy Verified 04/03/23 10:06 [From Bactrim] tazobactam [From Zosyn] Allergy Verified 04/03/23 10:06 trimethoprim [From Bactrim] Allergy Verified 04/03/23 10:06 vancomycin Allergy Verified 04/03/23 10:06 Home Medications Medication Instructions Recorded Confirmed Type albuterol sulfate 2.5 mg/3 mL 2.5 mg inhalation Q6H 09/12/22 04/04/23 History (0.083 %) solution for nebulization albuterol sulfate 90 mcg/actuation 2 puff inhalation Q6H PRN 09/12/22 04/03/23 History aerosol inhaler (Ventolin HFA) lisinopril 40 mg tablet 40 mg PO DAILY 09/12/22 04/04/23 History multivitamin with minerals 1 tab PO DAILY 09/12/22 04/04/23 History flaxseed 1,000 mg capsule 1,200 mg PO DAILY 10/25/22 04/03/23 History torsemide 10 mg tablet 10 mg PO DAILY 01/16/23 04/04/23 History acetaminophen 500 mg tablet 500 mg PO Q6H PRN pain #60 tabs 04/04/23 Rx hydrocodone 5 mg-acetaminophen 325 1 tab PO Q6H PRN severe pain #6 04/04/23 Rx mg tablet tabs ibuprofen 600 mg tablet 600 mg PO TID PRN pain #60 tabs 04/04/23 Rx Exam Const General: cooperative and no acute distress Resp Effort & Inspection: normal respiratory effort and able to speak in complete sentences Auscultation: clear to auscultation bilaterally, no rales, no rhonchi and no wheezes Cardio Heart Sounds: S1 normal, S2 normal and no murmurs Results Last Vital Signs Temp 97.3 F L 04/04/23 11:22 Pulse 66 04/04/23 11:22 Resp 16 04/04/23 11:22 BP 168/84 H 04/04/23 11:22 Pulse Ox 97 04/04/23 11:22 Documented by User: Jostin Sahni MD 04/10/23 07:42 Assessment and Plan Assessment and plan (1) Painful orthopaedic hardware: Status: Acute Assessment and plan: Plan: Educated patient on surgery covering surgical technique, recovery process, benefits and risks including but not limited to risk of infection, blood clot, damage to soft tissue/blood vessels/nerves in detail. After discussion patient gives verbal understanding of risks and elects to proceed with scheduling surgery. Patient had opportunity to have questions answered to their satisfaction. They will contact office if issues arise. Patient will continue to be scheduled for removal of painful orthopedic hardware from her right foot with Dr. Sahni I interviewed and examined the patient with Janeth Wilkerson PA-C. I agree with the documentation as above. The assessment and plan were formulated with my direct involvement. Rosie continues have pain about her right foot, due to deep hardware from previous injury. Please see the previous office note for complete detailed history but she desires to have this removed. She had no change to her symptoms. In discussion with her this morning she would prefer that all the hardware is removed as possible. While only a portion is truly symptomatic she feels that she is getting more symptoms over the second and third metatarsals as well and would like all this to be removed. I did discuss this with her. I reviewed the technical features. I discussed the potential complications to include bleeding, infection, pain, damage to nerves and vessels, fracture, wound healing difficulties. Despite these risk, she elects to proceed. Jostin Sahni MD FAAOS FAAHKS PFSH All Active Problems Painful orthopaedic hardware (Acute) RIGHT FOOT Medical History PCO (posterior capsular opacification), left Essential hypertension Surgical History History of total right knee replacement (10/26/22) Hx of foot surgery (~12/2020) Mid-tarsal [id number] plates and screws, and wire Hx of knee surgery Per pt. states she had a lateral resection Status post arthroscopy of right knee Social History Smoking/Tobacco Use Status: Former Tobacco Use Quit Date: 06/12/77 Smoking risk assessment performed?: Yes Alcohol Intake: current Alcohol Intake frequency: a few times a month Alcohol type: hard liquor Drug use: Never Substance use type: does not use Housing: house Do you feel safe at home: Yes Do you feel safe in your relationship?: Yes Meds Allergies and Home Medications Allergies Allergy/AdvReac Type Severity Reaction Status Date / Time ciprofloxacin Allergy Intermediate Hives Verified 04/03/23 10:06 amoxicillin Allergy Verified 04/03/23 10:06 piperacillin [From Zosyn] Allergy Verified 04/03/23 10:06 sulfamethoxazole Allergy Verified 04/03/23 10:06 [From Bactrim] tazobactam [From Zosyn] Allergy Verified 04/03/23 10:06 trimethoprim [From Bactrim] Allergy Verified 04/03/23 10:06 vancomycin Allergy Verified 04/03/23 10:06 Home Medications Medication Instructions Recorded Confirmed Type albuterol sulfate 2.5 mg/3 mL 2.5 mg inhalation Q6H 09/12/22 04/04/23 History (0.083 %) solution for nebulization albuterol sulfate 90 mcg/actuation 2 puff inhalation Q6H PRN 09/12/22 04/03/23 History aerosol inhaler (Ventolin HFA) lisinopril 40 mg tablet 40 mg PO DAILY 09/12/22 04/04/23 History multivitamin with minerals 1 tab PO DAILY 09/12/22 04/04/23 History flaxseed 1,000 mg capsule 1,200 mg PO DAILY 10/25/22 04/03/23 History torsemide 10 mg tablet 10 mg PO DAILY 01/16/23 04/04/23 History acetaminophen 500 mg tablet 500 mg PO Q6H PRN pain #60 tabs 04/04/23 Rx hydrocodone 5 mg-acetaminophen 325 1 tab PO Q6H PRN severe pain #6 04/04/23 Rx mg tablet tabs ibuprofen 600 mg tablet 600 mg PO TID PRN pain #60 tabs 04/04/23 Rx
[2023-04-04] MEDS: Lactated Ringers 1,000 ML 80 ML IV (11:59)
--- NOTE | 2023-04-04 12:51 | ANES.PREOP_ITS ---
General Info Date of Service Date Performed: 04/04/23 Height: 5 ft 2 in Weight: 52.4 kg Body Mass Index (BMI): 21.1 Surgical Procedure: Operation Date: 04/04/23 13:55 Proposed Procedure Side Surgeon p Hardware Removal Foot Right Jostin Sahni MD Meds Allergies and Home Medications Allergies Allergy/AdvReac Type Severity Reaction Status Date / Time ciprofloxacin Allergy Intermediate Hives Verified 04/03/23 10:06 amoxicillin Allergy Verified 04/03/23 10:06 piperacillin [From Zosyn] Allergy Verified 04/03/23 10:06 sulfamethoxazole Allergy Verified 04/03/23 10:06 [From Bactrim] tazobactam [From Zosyn] Allergy Verified 04/03/23 10:06 trimethoprim [From Bactrim] Allergy Verified 04/03/23 10:06 vancomycin Allergy Verified 04/03/23 10:06 Home Medication Medication Instructions Recorded albuterol sulfate 2.5 mg/3 mL 2.5 mg inhalation Q6H 09/12/22 (0.083 %) solution for nebulization albuterol sulfate 90 mcg/actuation 2 puff inhalation Q6H PRN 09/12/22 aerosol inhaler (Ventolin HFA) lisinopril 40 mg tablet 40 mg PO DAILY 09/12/22 multivitamin with minerals 1 tab PO DAILY 09/12/22 flaxseed 1,000 mg capsule 1,200 mg PO DAILY 10/25/22 torsemide 10 mg tablet 10 mg PO DAILY 01/16/23 Current Visit Medications: Current Medications Generic Name Dose Route Start Last Admin Trade Name Freq PRN Reason Stop Dose Admin Acetaminophen 1,000 mg 04/04/23 06:00 04/04/23 11:19 Acetaminophen 500 Mg Tab PO 05/04/23 05:59 1,000 mg PREOP RUSTY Administration Acetaminophen 650 mg 04/04/23 11:33 Acetaminophen 325 Mg Tab PO 05/04/23 11:32 Q4H PRN PRN Hydrocodone Bitart/Acetaminophen 0 tab 04/04/23 11:33 Hydrocodone 5/Acetaminophen 325 Tab PO 05/04/23 11:32 Q3H PRN PRN Pain Celecoxib 400 mg 04/04/23 06:00 04/04/23 11:19 Celecoxib 200 Mg Cap PO 05/04/23 05:59 400 mg PREOP RUSTY Administration Ringer's Solution 1,000 mls @ 80 mls/hr 04/04/23 06:00 04/04/23 11:59 IV 05/03/23 23:59 80 mls/hr INFUSION RUSTY Administration Cefazolin Sodium/Dextrose 2 gm in 50 mls @ 100 mls/hr 04/04/23 06:00 Ancef Duplex IVPB 05/03/23 23:59 PREOP RUSTY IV Miscellaneous Supplies 1 each 04/04/23 06:00 Iv Access IV 05/03/23 23:59 DIRECTED RUSTY Sodium Chloride 0 ml 04/04/23 06:00 Normal Saline Flush 10 Ml Syr IV 05/03/23 23:59 PRN PRN Sodium Chloride 0 ml 04/04/23 06:00 Normal Saline 10 Ml Vial IJ 05/03/23 23:59 DIRECTED PRN Sterile Water 0 ml 04/04/23 06:00 Water,Injection,Sterile 10 Ml Vial IJ 05/03/23 23:59 DIRECTED PRN PFSH Active Problems Active Problems: Problem Status Onset Code Painful orthopaedic hardware T84.84XA Medical History Medical History PCO (posterior capsular opacification), left Essential hypertension Surgical History Surgical History History of total right knee replacement (10/26/22) Hx of foot surgery (~12/2020) Mid-tarsal [id number] plates and screws, and wire Hx of knee surgery Per pt. states she had a lateral resection Status post arthroscopy of right knee Tobacco Smoking/Tobacco Use Status: Former Tobacco Use Alcohol Alcohol Intake: current Alcohol intake frequency: a few times a month Alcohol type: hard liquor Substance Use Substance use: Never Substance use type: does not use Vital Signs and Lab Results Vital Signs Most Recent Vital Signs in EMR: Most Recent Vital Signs Temp Pulse Resp BP Pulse Ox 36.3 C L 66 16 168/84 H 97 04/04/23 11:22 04/04/23 11:22 04/04/23 11:22 04/04/23 11:22 04/04/23 11:22 Lab Results Blood Type / Crossmatch: No Data to Display Complete Blood Count: No Data to Display Complete Metabolic Panel: No Data to Display Liver Function Panel: No Data to Display Coagulation Panel: No Data to Display Cardiac Panel: No Data to Display Arterial Blood Gas: No Data to Display Venous Blood Gas: No Data to Display Pancreas Panel: No Data to Display Thyroid Panel: No Data to Display Infectious Disease: No Data to Display Blood Cultures: No Data to Display Toxicology Panel: No Data to Display Anesthesia Assessment and Plan Anesthesia History Personal History: No History of Anesthesia Complications Family History: No Family History of Anesthesia Complications Exercise Tolerance Exercise Tolerance: Metabolic Equivalents>4 Pertinent Negatives Pertinent Negatives: No Symptoms of GERD and No Major Cardiovascular Symptoms or Complaints Cardiac & Pulmonary Exam Cardiac Exam: Normal S1/S2 Heart Sounds Pulmonary Exam: Clear Bilateral Breath Sounds Implantable Cardiac Device Does patient have a Pacemaker or an ICD?: No Airway Exam Known Difficult Airway: No Mallampati Class: 2 Mouth Opening: Normal (> 3cm) Thyromental Distance: Greater than 3 cm Neck Range of Motion: Full ROM Neck Circumference: Normal Teeth Condition: Normal Dentition, Removable Dentures/Plates Upper and Removable Dentures/Plates Lower ASA Classification ASA Score: ASA 2 Emergency Case?: No NPO Status NPO Status: NPO Clears >2 hours, Solids >8 hours Anesthesia Plan Resuscitation Status: Full Code Anesthesia Technique: General Anesthesia Airway Planned: Natural Airway Monitors Used: Standard Monitors Preoperative Comments:: 77 yo female for hardware removal. Sig PMHx: HTN (lisinopril, torsemide), asthma ( with coughs and colds, albuterol), former smoker, occ EtOH. Cardiac MRI 11/01, due to ECHO at [facility] which showed atrial mass: LVEF 71%, normal fxn. mild TR, mild MR, no atrial mass. Previous Anes: - [facility], easy mask, AirQ 3.5 - woke up confused and very sore throat. - [facility]: Spinal with sedation and adductor canal block. Did well.
[2023-04-04 12:55] VITALS: BMI 21.1
[2023-04-04] MEDS: ceFAZolin 2 GM/50 ML BAG IVPB (13:25)
--- NOTE | 2023-04-04 13:45 | DI.RAD_ITS ---
Exam(s) XR FOOT RT COMPLETE EXAM: XR FOOT RT COMPLETE CLINICAL HISTORY: removal of hardware. TECHNIQUE: 2D and realtime digital imaging was performed. COMPARISON: CR XR FOOT RT COMPLETE from 01/16/2023 FINDINGS: Please see procedure note for details. Fluoro time: 6seconds RADIATION DOSE DELIVERED: gloria Thompson=0.13 mGy
[2023-04-04] MEDS: Bupivacaine 0.5% Pres-Free 30 ML VIAL (13:48)
--- NOTE | 2023-04-04 14:40 | PDOC.DSDIS_ITS ---
Date of service: 04/04/23 Time of Service: 14:43 Discharge Plan Disposition Patient Disposition: Home Condition: Good Discharge Details Reason For Visit: Painful orthopedic hardware right foot Attending Provider: Jostin Sahni Primary Care Provider: Francisco Andrew Home Meds and New Rx's Prescriptions: New hydrocodone-acetaminophen 5-325 mg tablet 1 tab PO Q6H PRN (Reason: severe pain) Qty: 6 0RF Rx Instructions: Take one tablet up to every 6 hours as needed for severe postoperative pain acetaminophen 500 mg tablet 500 mg PO Q6H PRN (Reason: pain) Qty: 60 2RF ibuprofen 600 mg tablet 600 mg PO TID PRN (Reason: pain) Qty: 60 0RF Continued lisinopril 40 mg tablet 40 mg PO DAILY albuterol sulfate 2.5 mg /3 mL (0.083 %) solution for nebulization 2.5 mg inhalation Q6H albuterol sulfate [Ventolin HFA] 90 mcg/actuation HFA aerosol inhaler 2 puff inhalation Q6H PRN multivitamin with minerals Tablet 1 tab PO DAILY torsemide 10 mg tablet 10 mg PO DAILY Rx Instructions: 10mg alternating with 5mg flaxseed 1,000 mg Capsule 1,200 mg PO DAILY Discharge Instructions Additional Instructions: Foot Hardware Removal Discharge Instructions Activity: You may weight bear as tolerated. You should keep the leg elevated as much as possible. You may wiggle your toes and move your hip and knee. You should wear the post op sandal or your previous fracture walking boot when you are up and mobilizing, but may remove it when not and move your ankle/foot as tolerated. Dressings: You should keep the initial dressing on for at least 3 days. After 3 days, you may remove it and get it wet in the shower. You should keep it covered with a light gauze dressing or wrap until follow-up. Medications: - You should take Tylenol and Ibuprofen around the clock for baseline pain. - You have been prescribed a stronger narcotic, Hydrocodone, for breakthrough pain. Follow-up: 2 weeks Referrals: Jostin Sanhi MD [ [facility] STAFF PHYSICIAN] - Equipment/Supplies: Walker Activity:: Activity as Tolerated Remove Dressings/Wound Care:: 72 hours Shower/Bathe:: 72 hours Diet:: As Tolerated Discharge Orders Discharge Orders: Discharge Order (Routine); Ordered 04/04/23 Ordered By: Janeth Wilkerson DS: Diagnosis Discharge Diagnosis (1) Painful orthopaedic hardware: Status: Acute
[2023-04-04 14:51] VITALS: BP 148/83; PULSE 59; RESP 18; TEMP 36.3; O2SAT 98
[2023-04-04 15:25] VITALS: BP 148/100; PULSE 54; RESP 15; TEMP 37; O2SAT 99
--- NOTE | 2023-04-04 17:14 | W.PM.OP ---
Date of service: 04/04/23 Time of Service: 13:30 Operative Note Operative Note DATE OF PROCEDURE: 04/04/23 PRE-OP DIAGNOSIS: Painful Orthopaedic Hardware, Right Foot PROCEDURE: Removal of deep hardware, right foot SURGEON: Jostin Sahni ANESTHESIA TYPE: General:No Airway Refer to Anesthesia Record ESTIMATED BLOOD LOSS: 50 PATHOLOGY: none sent TOURNIQUET TIME: 0 COMPLICATIONS: None Patient was transported to: PACU Patient's condition: stable Indications: Mai is a 77-year-old who previously suffered a Lisfranc type injury resulting in plate and screw fixation of her right midfoot. She has noticed increasing pain with pressure over this area and a prominent hardware. I had a discussion with her in the office about treatment options and she desired to have her hardware removed. I offered to remove some of the symptomatic portions or remove all the hardware. She preferred that all the hardware be removed at the time of surgery. I discussed the surgery with her. I reviewed risk to include bleeding, infection, pain, stiffness, damage to nerves and vessels, damage to muscles and tendons, skin healing difficulties, refracture, blood clot. Despite these risk, she elected to proceed. Findings: 3 plates and approximately 13 screws were removed from the right midfoot without difficulty. Procedure Description: Julieta was greeted in the preoperative holding area. Her identity was confirmed the correct side was identified and marked. The consent was reviewed with the patient and signed. She was then taken back to the operating room. Prophylactic antibiotics in the form of cefazolin were administered. A timeout was performed for safe surgery. The right leg was prepped with ChloraPrep and draped in a sterile fashion. The previous incisions were marked on the skin. The proposed surgical sites were then injected with 0.25% bupivacaine. Starting with the more medial incision and incised the skin sharply. Deep dissection was carried down with a tenotomy scissor to evaluate and find the plate. Once on the plate periosteal and scar tissue was incised sharply and elevated with a henriquez elevator. This gave excellent visualization to the medial based first marked metatarsal plate. The screws were removed and the plate was removed without difficulty. Dissection was then carried subperiosteally over the dorsum of the first metatarsal to find the screw obliquely oriented. Fluoroscopy was utilized. Screw was removed. The middle incision was then incised sharply. Once again crossing neurovascular and tendinous structures were protected. The plate of the second metatarsal was identified and once directly on top of the plate the overlying tissue was incised. A henriquez elevator was utilized for better exposure. Once the plate was fully exposed the screw was removed and the plate was removed, once again without difficulty. Utilizing the same interval through the skin but mobilizing deeper structures gave access to the third metatarsal plate. Once directly on top of the plate the soft tissue was incised and the plate was exposed. Screws were removed as well as the plate, once again without difficulty. The deeper structures and periosteal tissues were then injected with remaining 0.25% bupivacaine. The wounds were thoroughly irrigated. Deep tissues were then closed with 3-0 Vicryl. The skin was closed with a 4-0 nylon. The wounds were dressed with Xeroform, 4 x 4's Kerlix and Panchito wrap. She was placed in a postop shoe. At the end the case WERE correct.
--- NOTE | 2023-04-05 17:58 | W.ANESPOSTOP ---
Postoperative Evaluation Date, Time and Location Date Performed: 04/04/23 Time Performed: 15:45 Patient Location: Day Surgery Unit Vital Signs Most Recent Imported Vital Signs: Most Recent Vital Signs Temp Pulse Resp BP Pulse Ox 37 C 54 L 15 148/100 H 99 04/04/23 15:25 04/04/23 15:25 04/04/23 15:25 04/04/23 15:25 04/04/23 15:25 Pain Score Most Recent Pain Score: Most Recent Pain Score Pain Level 0 04/04/23 15:25 Assessment Mental Status: Awake (Alert & Oriented to Patient Baseline) Airway and Respiratory Function: Patent airway with normal (patient baseline) respiratory exam Cardiovascular Function: Hemodynamically Stable Hydration Status: Adequately Hydrated Nausea & Vomiting: No Nausea or Vomiting Pain: Pt. Denies Any Pain Peripheral Nerve Block: Patient did not receive a nerve block
== END 2023-04-04 11:05 | disposition home or self-care (01) ==
PROVIDERS: PCP Internal Medicine; Visit Provider Student in an Organized Health Care Education/Training Program
PROC: (CPT 20680; principal; 2023-04-04 13:45)
DX: T84.84XA Pain due to internal orthopedic prosthetic devices, implants and grafts, initial encounter (principal); I10 Essential (primary) hypertension
CPT/HCPCS: 20680; 00123; 73630; J0690; J2001; J2371; J2405; J3010

== ENCOUNTER → 2023-04-17 11:08 | Outpatient (BNVA) | payer MEDICARE, SELFPAY | PROVIDERS: PCP Internal Medicine; Referring Provider Internal Medicine; Visit Provider Student in an Organized Health Care Education/Training Program | DX: T84.84XD Pain due to internal orthopedic prosthetic devices, implants and grafts, subsequent encounter (principal); X58.XXXD Exposure to other specified factors, subsequent encounter ==

== ENCOUNTER 2023-10-27 11:07 | Outpatient (CLI) | payer MEDICARE, SELFPAY ==
--- NOTE | 2023-10-27 10:15 | DI.RAD_ITS ---
Exam(s) XR KNEE RT 2V AP,LAT EXAM: XR KNEE RT 2V AP,LAT CLINICAL HISTORY: ANNUAL F/U R TKA. TECHNIQUE: 2D digital imaging was performed. Two images were obtained. AP and lateral views were ob tained. COMPARISON: CR XR KNEE RT 2V AP,LAT from 09/12/2022 CR XR KNEE RT 1V from 11/10/2022 FINDINGS: BONES: There are stable post operative changes of a right total knee replacement present. No fractur e or dislocation. JOINTS: The orthopedic hardware is in good position. No evidence of hardware loosening. SOFT TISSUE: Normal. IMPRESSION: Stable right total knee replacement. DATA REPOSITORY: RADIATION DOSE DELIVERED:
== END 2023-10-27 11:08 | disposition home or self-care (01) ==
LOC: DIORS 11:08
PROVIDERS: PCP Internal Medicine; Referring Provider Internal Medicine; Visit Provider Physician Assistant
DX: Z96.651 Presence of right artificial knee joint (principal); Z47.1 Aftercare following joint replacement surgery; M70.51 Other bursitis of knee, right knee
CPT/HCPCS: 99213; 73560

== ENCOUNTER 2024-01-24 11:56 | Outpatient (REF) | payer MEDICARE, SELFPAY ==
[2024-01-24 20:35] LABS: Anion Gap 6.7 mmol/L (3-11); BUN 22 mg/dL (7-18); CO2 28.3 mmol/L (21.0-32.0); CREATININE 0.9 mg/dL (0.55-1.02); Chloride 103 mmol/L (98-107); Estimated GFR 66.26 (mL/min/1.73m2); Glucose 104 mg/dL (74-106); Potassium 4.3 mmol/L (3.5-5.1); Sodium 138 mmol/L (136-145); TSH 2.62 uIU/Ml (0.36-3.74)
== END 2024-01-24 11:57 | disposition home or self-care (01) ==
LOC: NCHCN 11:56
PROVIDERS: PCP Internal Medicine; Visit Provider Internal Medicine
DX: I10 Essential (primary) hypertension (principal)
CPT/HCPCS: 80048; 84443

== ENCOUNTER 2024-11-28 09:54 | Outpatient (CLI) | payer MEDICARE, SELFPAY ==
--- NOTE | 2024-11-28 09:30 | DI.RAD_ITS ---
Exam(s) XR HIP LT COMPLETE AP PELVIS EXAM: XR HIP LT COMPLETE AP PELVIS CLINICAL HISTORY: LEFT HIP PAIN. TECHNIQUE: 2D digital imaging was performed of the left hip. Two views were obtained. AP pelvis and lateral left hip views were obtained. COMPARISON: CR XR STANDING ALIGNMENT from 11/10/2022 FINDINGS: BONES: No acute fracture is present. No bony destructive lesion is seen. JOINTS: No dislocation present. There are mild degenerative changes seen in the hips bilaterally. SOFT TISSUE: Normal. IMPRESSION: Mild arthrosis of the hips bilaterally. DATA REPOSITORY: RADIATION DOSE DELIVERED:
== END 2024-11-28 09:55 | disposition home or self-care (01) ==
LOC: DIORS 09:54
PROVIDERS: PCP Internal Medicine; Referring Provider Internal Medicine; Visit Provider Physician Assistant
DX: M25.552 Pain in left hip (principal); M16.12 Unilateral primary osteoarthritis, left hip
CPT/HCPCS: 99213; 73502

== ENCOUNTER 2025-01-13 18:00 | Outpatient (REF) | payer MEDICARE, SELFPAY ==
[2025-01-13 19:48] LABS: ALT 24 U/L (14-59); Anion Gap 5.9 mmol/L (3-11); BUN 25 mg/dL (7-18); CO2 28.1 mmol/L (21.0-32.0); Calcium 10.4 mg/dL (8.5-10.1); Chloride 103 mmol/L (98-107); Creatine Kinase 147 U/L (26-192); Estimated GFR 58.02 (mL/min/1.73m2); Glucose 101 mg/dL (74-106); Potassium 4.2 mmol/L (3.5-5.1); Sodium 137 mmol/L (136-145)
[2025-01-13 20:16] LABS: Calculated LDL 130 mg/dL (<100); Cholesterol 218 mg/dL (<200); HDL Cholesterol 72 mg/dL (>or=50); Triglyceride 82 mg/dL (<150)
== END 2025-01-13 18:01 | disposition home or self-care (01) ==
LOC: NCHCN 18:00
PROVIDERS: PCP Internal Medicine; Visit Provider Internal Medicine
DX: I10 Essential (primary) hypertension (principal)
CPT/HCPCS: 80048; 80061; 82550; 84460

== ENCOUNTER 2025-04-09 01:29 | Outpatient (CLI) | payer MEDICARE, SELFPAY ==
--- NOTE | 2025-04-09 08:30 | DI.MRI_ITS ---
Exam(s) MR THORACIC SPINE WO EXAM: MR THORACIC SPINE WO CLINICAL HISTORY: pain M54.14 RADICULOPATHY THORACIC REGION M54.6 PAIN S22.000A WEDGE FX. TECHNIQUE: Multiplanar multisequence MRI of the Thoracic spine was performed. COMPARISON: CR XR T SPINE AP/LAT/SWIMMERS from 01/15/2025 FINDINGS: Bones: There is an old T8 anterior wedge compression fracture deformity. Alignment is satisfactory. The signal characteristics are unremarkable. Cord: The thoracic cord is normal size and signal intensity. No intrinsic cord lesion is present. Discs: There are small disc herniations at a few levels in the thoracic spine but no central spinal canal or neural foraminal stenosis results. Soft tissues: Normal. T1-2: No disc herniation or bulge is identified. No central spinal canal or neural foraminal stenosis. T2-3: There is a small right paracentral disc herniation. Degenerative endplate signal changes are seen at this level. No central spinal canal or neural foraminal stenosis. T4-5: No disc herniation or bulge is identified. No central spinal canal or neural foraminal stenosis. T5-6: No disc herniation or bulge is identified. No central spinal canal or neural foraminal stenosis. T6-7: No disc herniation or bulge is identified. No central spinal canal or neural foraminal stenosis. T7-8: No disc herniation or bulge is identified. No central spinal canal or neural foraminal stenosis. T8-9: No disc herniation or bulge is identified. No central spinal canal or neural foraminal stenosis. T9-10: No disc herniation or bulge is identified. No central spinal canal or neural foraminal stenosis. T10-11:There is a very small left paracentral disc herniation. No central spinal canal or neural foraminal stenosis. T11-12: No disc herniation or bulge is identified. No central spinal canal or neural foraminal stenosis. T12-L1: There is a small left paracentral disc herniation. No central spinal canal or neural foraminal stenosis. IMPRESSION: 1. There is no central spinal canal or neural foraminal stenosis seen in the thoracic spine. 2. The thoracic spinal cord is unremarkable. 3. Small disc herniations at a few levels as described above. DATA REPOSITORY:
== END 2025-04-09 01:49 ==
LOC: DI 01:29
PROVIDERS: PCP Internal Medicine; Visit Provider Anesthesiology Pain Medicine
DX: M54.6 Pain in thoracic spine (principal); S22.000A Wedge compression fracture of unspecified thoracic vertebra, initial encounter for closed fracture; M54.14 Radiculopathy, thoracic region
CPT/HCPCS: 72146

== ENCOUNTER 2025-05-30 12:49 | Outpatient (REF) | payer MEDICARE, SELFPAY ==
[2025-05-30 19:52] LABS: ALT 17 U/L (10-49); AST 31 U/L (<34); Albumin 4.3 g/dL (3.2-5.0); Alkaline Phosphatase 60 U/L (46-116); Anion Gap 8.3 mmol/L (3-11); BUN 21 mg/dL (9-23); Bilirubin, Direct 0.2 mg/dL (<=0.3); Bilirubin, Total 0.6 mg/dL (0.2-1.2); CO2 27.7 mmol/L (20.0-31.0); Calcium 10.1 mg/dL (8.3-10.6); Chloride 104 mmol/L (98-107); Glucose 95 mg/dL (74-106); Potassium 4.4 mmol/L (3.5-5.1); Sodium 140 mmol/L (136-145); Total Protein 6.9 g/dL (5.7-8.2)
== END 2025-05-30 12:50 | disposition home or self-care (01) ==
LOC: NCHCN 12:49
PROVIDERS: PCP Internal Medicine; Visit Provider Nurse Practitioner
DX: B35.1 Tinea unguium (principal); E21.0 Primary hyperparathyroidism
CPT/HCPCS: 80048; 80076